=== PATIENT | male | born 1960 | race Caucasian/White ===

== ENCOUNTER 2017-05-23 04:33 | Inpatient (IN) | payer MEDICAID, OTHER ==
[~2017-05-23] VITALS: Ht 160 cm; Wt 70.8 kg
[2017-05-23] MEDS ORDERED: MORPHINE SULFATE 4 MG/ML CPJ (NOT FOR IM USE) IV STA (06:03)
[2017-05-23] MEDS ORDERED: SODIUM CHLORIDE 0.9% 1,000 ML IV ONE ×2 (06:03→06:34)
[2017-05-23] MEDS ORDERED: ONDANSETRON HCL 4MG/2ML VIAL IV STA (06:03)
[2017-05-23 06:29] LABS: HEMATOCRIT. 38.8 % (42.0-52.0); HEMOGLOBIN. 13.2 g/dL (14.0-18.0); MEAN CORPUSCULAR HEMOGLOBIN 29.6 pg (28.0-32.0); MEAN CORPUSCULAR VOLUME 86.9 fL (80.0-94.0); MEAN PLATELET VOLUME 8.3 fl (7.4-10.4); PLATELET 200 x1000/uL (130-400); RED BLOOD CELL COUNT 4.47 mill/uL (4.7-6.1); RED CELL DISTRIBUTION WIDTH 14.3 % (11.6-14.6)
[2017-05-23 06:31] LABS: INR 1.2; PARTIAL THROMBOPLASTIN TIME 24.9 sec (23.4-31.0); PROTHROMBIN TIME 12.3 sec (9.4-11.6)
[2017-05-23 06:35] LABS: CARBON DIOXIDE 22 mEq/L (21-32); CHLORIDE 110 mEq/L (98-107)
[2017-05-23 07:11] LABS: PLATELET ESTIMATE NORMAL
[2017-05-23] MEDS ORDERED: LEVOFLOXACIN 500MG PREMIX 100 ML IV ONE (08:30)
[2017-05-23] MEDS ORDERED: METRONIDAZOLE 500 MG PREMIX 100 ML IV ONE (08:30)
[2017-05-23 09:51] LABS: CLARITY URINE CLEAR (CLEAR); COLOR URINE YELLOW (YELLOW); GLUCOSE URINE NEGATIVE (NEGATIVE); KETONES URINE NEGATIVE (NEGATIVE); LEUKOCYTE ESTERASE URINE TRACE (NEGATIVE); NITRITE URINE NEGATIVE (NEGATIVE); OCCULT BLOOD URINE NEGATIVE (NEGATIVE); PH URINE 5.5 (4.5-8.0); PROTEIN URINE NEGATIVE (NEGATIVE); SPECIFIC GRAVITY URINE 1.017 (1.005-1.030); UROBILINOGEN URINE 0.2 E.U./dL (0.2-1.0)
[2017-05-23 15:36] VITALS: BP 117/68
[2017-05-23 16:00] VITALS: BP 117/68
[2017-05-23] MEDS ORDERED: MORPHINE SULFATE 4 MG/ML CPJ (NOT FOR IM USE) IV PRN (18:15)
[2017-05-23] MEDS ORDERED: DEXTROSE 50% WATER 50ML SYRINGE IV PRN (18:15)
[2017-05-23] MEDS: CLONIDINE 0.1MG TABLET PO SCH (18:48)
[2017-05-23 20:00] VITALS: BP 122/71
[2017-05-23] MEDS ORDERED: CEFTRIAXONE 1 G PREMIX 50 ML IV SCH (20:00)
[2017-05-23] MEDS: BLOOD SUGAR DIAGNOSTIC STRIP TEST SCH (21:00)
[2017-05-23] MEDS: INSULIN LISPRO 100 UNITS/ML SUBCUT SCH (21:00)
[2017-05-24] VITALS: BP 122/73
[2017-05-24] MEDS: CLONIDINE 0.1MG TABLET PO SCH ×4 (02:00→18:00)
[2017-05-24 04:00] VITALS: BP 125/71
[2017-05-24] MEDS: BLOOD SUGAR DIAGNOSTIC STRIP TEST SCH ×4 (06:34→21:02)
[2017-05-24] MEDS: INSULIN LISPRO 100 UNITS/ML SUBCUT SCH ×4 (07:50→21:00)
[2017-05-24 08:00] VITALS: BP 146/78
[2017-05-24 08:27] LABS: CARBON DIOXIDE 25 mEq/L (21-32); CHLORIDE 107 mEq/L (98-107)
[2017-05-24 11:22] VITALS: BP 145/74
[2017-05-24] MEDS: LEVOFLOXACIN 500MG PREMIX 100 ML IV SCH (11:36)
[2017-05-24 13:37] LABS: BASOPHILS % 0.9 % (0.0-2.0); HEMATOCRIT. 39.1 % (42.0-52.0); HEMOGLOBIN. 13.4 g/dL (14.0-18.0); LYMPHOCYTES % 20.2 % (20.0-50.0); MEAN CORPUSCULAR HEMOGLOBIN 29.9 pg (28.0-32.0); MEAN CORPUSCULAR VOLUME 86.9 fL (80.0-94.0); MEAN PLATELET VOLUME 8.4 fl (7.4-10.4); MONOCYTES % 14.2 % (2.0-8.0); NEUTROPHILS % 52.7 % (40.0-76.0); PLATELET 221 x1000/uL (130-400); RED BLOOD CELL COUNT 4.49 mill/uL (4.7-6.1)
[2017-05-24 14:19] LABS: CARBON DIOXIDE 27 mEq/L (21-32); CHLORIDE 103 mEq/L (98-107)
[2017-05-24 16:00] VITALS: BP 151/73
[2017-05-24] MEDS: METRONIDAZOLE 500 MG PREMIX 100 ML IV SCH ×2 (16:35→20:57)
[2017-05-24 20:00] VITALS: BP 131/76
[2017-05-25] VITALS: BP 130/65
[2017-05-25 04:00] VITALS: BP 130/74
[2017-05-25] MEDS: CLONIDINE 0.1MG TABLET PO SCH ×3 (06:00→12:00)
[2017-05-25] MEDS: BLOOD SUGAR DIAGNOSTIC STRIP TEST SCH ×2 (06:53→12:23)
[2017-05-25] MEDS: METRONIDAZOLE 500 MG PREMIX 100 ML IV SCH ×3 (06:55→14:21)
[2017-05-25] MEDS: INSULIN LISPRO 100 UNITS/ML SUBCUT SCH ×2 (07:50→12:42)
[2017-05-25 08:00] VITALS: BP 126/72
[2017-05-25] MEDS: LEVOFLOXACIN 500MG PREMIX 100 ML IV SCH (11:49)
[2017-05-25] MEDS ORDERED: METR250T PO (13:07)
[2017-05-25] MEDS ORDERED: LEVO500T2 PO (13:08)
[2017-05-25 15:06] VITALS: BP 128/81
[2017-05-25] MEDS ORDERED: METRONIDAZOLE 500MG TABLET PO SCH (22:00)
[2017-05-26] MEDS ORDERED: LEVOFLOXACIN 500MG TABLET PO SCH (11:00)
== END 2017-05-25 15:50 | disposition home or self-care (01) | DRG 392 ==
LOC: ER 04:44 → 6EST 08:38 → EDBEDREQ 08:41 → ENRESERV 11:56
PROVIDERS: ADMIT Family Medicine; ATTEND Family Medicine
DX: K52.9 Noninfective gastroenteritis and colitis, unspecified (principal); E11.40 Type 2 diabetes mellitus with diabetic neuropathy, unspecified; K76.0 Fatty (change of) liver, not elsewhere classified; I10 Essential (primary) hypertension; D63.8 Anemia in other chronic diseases classified elsewhere; K80.20 Calculus of gallbladder without cholecystitis without obstruction
CPT/HCPCS: 36415; 71010; 74176; 76705; 80048; 80053; 81001; 82962; 83690; 84484; 85025; 85610; 85730; 87086; 87493; 93005; 96361; 96365; 96367; 96375; 99291; J0696; J1815; J1956; J2270; J2405; J3490; J7030